=== PATIENT | male | born 1955 | race Hispanic/Latino ===

== ENCOUNTER → 2019-12-27 | Day surgery (SDC) | payer OTHER ==
[~2019-12-27] MED LIST: EPINEPHRINE/PF 1 MG/ML AMP ONE; LIDOCAINE 1% MPF 5 ML VIAL ONE; Ringers Lactate 1,000 ML IV ONE; propofoL 200 MG/20 ML VIAL IV ONE
--- OUTSIDE RECORDS SUMMARY | 2019-12-27 07:34 | XMS REPORT | Continuity of Care Document ---
:1955 Author Organization [facility] t Address [address] [place] [address] Care Team Providers Name Role Phone Lab, Fam Pob I Attending Clinician Unavailable Problems This patient has no known problems. Allergies, Adverse Reactions, Alerts This patient has no known allergies or adverse reactions. Medications This patient has no known medications. Procedures This patient has no known procedures. Encounters Start End Encounter Admission Attending Care Care Encounter Source Date/Time Date/Time Type Type Clinicians Facility Department ID 2019-09-04 2019-09-04 Laboratory Lab, [facility] [id number] 12:48:31 13:35:34 Only Fam Pob I [facility] [id number] [place] [id number] Nik [phone] nal [address] One Results This patient has no known results.
[2019-12-27 10:07] VITALS: BP 131/73; TEMP 97.2; O2SAT 98
--- NOTE | 2019-12-27 12:02 | OP ---
Surgeon: Dalton Landaverde MD Procedure Performed: Esophagogastroduodenoscopy. Indication For Procedure: Screening for esophageal varices, chronic liver disease, plan for anesthes ia monitored anesthesia care. Complexity: Average. Technique: After obtaining informed consent from the patient explaining risks and complications whic h include, but are not limited to bleeding, infection, perforation, anesthesia complications, the pat ient was placed in the left lateral position and sedation was given. From then on, the scope was adv anced to the mouth and carefully guided up to the second portion of the duodenum. After the completi on of procedure, scope and equipment were withdrawn and procedure terminated in a safe manner. Findings: Esophagus: No gross lesion seen in the entire esophagus, except for an irregular Z-line. Biopsies taken. No varices seen. Stomach: Mild patchy erythema seen in the body and antrum. Biopsies taken. There was a large solid food, retained food bezoar in the upper body that limited visualization. Duodenum: The bulb and second portion appeared normal. Complications: None. Tolerance To Anesthesia: Excellent. Postoperative Diagnosis: Gastric retention gastritis. Plan: 1.Await pathology results. 2.Follow up in the GI clinic in 2 weeks. 3.He may benefit from repeat EGD. 4.May start PPI based on biopsies. US/MODL Voice ID: [id number] Report ID: [id number]
== END ==
LOC: OR 07:26
PROVIDERS: ATTEND Internal Medicine Gastroenterology
PROC: 0DB78ZX Excision of Stomach, Pylorus, Via Natural or Artificial Opening Endoscopic, Diagnostic (ICD-10-PCS; 2019-12-27)
PROC: 0DB38ZX Excision of Lower Esophagus, Via Natural or Artificial Opening Endoscopic, Diagnostic (ICD-10-PCS; principal; 2019-12-27 08:30)
DX: K29.50 Unspecified chronic gastritis without bleeding (principal); K21.00 Gastro-esophageal reflux disease with esophagitis, without bleeding; K76.0 Fatty (change of) liver, not elsewhere classified; I10 Essential (primary) hypertension; E66.01 Morbid (severe) obesity due to excess calories; R93.3 Abnormal findings on diagnostic imaging of other parts of digestive tract; Z20.828 Contact with and (suspected) exposure to other viral communicable diseases
CPT/HCPCS: 88312; 88305; 43239; U0002; J2704; J7120; J0171

== ENCOUNTER 2019-12-31 06:32 | Day surgery (SDC) | payer OTHER ==
--- OUTSIDE RECORDS SUMMARY | 2019-12-31 06:34 | XMS REPORT | Continuity of Care Document ---
:1955 Author Organization [facility] t Address [address] [place] [address] Care Team Providers Name Role Phone Lab, [...] Facility Department ID 2019-09-04 2019-09-04 Laboratory Lab, [facility] [id number] 12:48:31 13:35:34 Only Fam Pob I [facility] [id number] [place] [id number] Nik [phone] nal [address] One Results This patient has no known results.
[2019-12-31] MEDS ORDERED: Ringers Lactate 1,000 ML IV ONE (06:48)
[2019-12-31] MEDS ORDERED: LIDOCAINE 1% MPF 5 ML VIAL ONE (07:33)
[2019-12-31] MEDS ORDERED: propofoL 200 MG/20 ML VIAL IV ONE ×2 (07:33)
--- NOTE | 2019-12-31 10:38 | OP ---
Surgeon: Dalton Landaverde MD Procedure To Be Performed: Colonoscopy. Indication For Procedure: Screening. Plan For Anesthesia: Monitored anesthesia care. Complexity: Average. Technique: After obtaining informed consent from the patient and explaining risks and complications which include, but are not limited to bleeding, infection, perforation, anesthesia complications, the patient was placed in a left lateral position and sedation was given. A digital rectal exam was per formed and scope advanced into the rectum and carefully guided up till the cecum. The cecum was iden tified by the ileocecal valve and appendiceal orifice. Subsequently, the scope gradually withdrawn w hile carefully examining the mucosa. Quality of prep was segmental poor, especially on the right edmar e. Scope withdrawal time was 11 minutes. Findings: Digital rectal exam was normal. Grade 1 internal hemorrhoids were seen on retroflexion in the rectum, rare diverticula seen in the sigmoid. In the transverse colon, a sessile 4 mm polyp see n. This was removed with hot biopsy polypectomy. In the ascending colon, 2 polyps ranging in size f rom 3 to 6 mm were seen. These were removed with hot biopsy polypectomy. Complications: None. Tolerance To Anesthesia: Excellent. Postop Diagnosis: Limited prep, polyps, rare diverticulosis. Plan: 1.Await pathology results. 2.Due to prep and current findings, would recommend repeating colonoscopy in 2 years. US/MODL Voice ID: [id number] Report ID: [id number]
[2019-12-31 11:47] VITALS: BP 124/76; TEMP 97.1; O2SAT 96
== END 2019-12-31 08:55 | disposition home or self-care (01) ==
LOC: OR 06:32
PROVIDERS: ATTEND Internal Medicine Gastroenterology
PROC: 0DBK8ZX Excision of Ascending Colon, Via Natural or Artificial Opening Endoscopic, Diagnostic (ICD-10-PCS; 2019-12-31)
PROC: 0DBL8ZX Excision of Transverse Colon, Via Natural or Artificial Opening Endoscopic, Diagnostic (ICD-10-PCS; principal; 2019-12-31 07:30)
DX: Z12.11 Encounter for screening for malignant neoplasm of colon (principal); D12.3 Benign neoplasm of transverse colon; D12.2 Benign neoplasm of ascending colon; K64.8 Other hemorrhoids; Z20.828 Contact with and (suspected) exposure to other viral communicable diseases; K76.0 Fatty (change of) liver, not elsewhere classified; R10.9 Unspecified abdominal pain; I10 Essential (primary) hypertension; E66.01 Morbid (severe) obesity due to excess calories; R93.3 Abnormal findings on diagnostic imaging of other parts of digestive tract; R93.2 Abnormal findings on diagnostic imaging of liver and biliary tract
CPT/HCPCS: 88305; 45384; J2704; J7120

== ENCOUNTER 2020-02-04 06:52 | Day surgery (SDC) | payer OTHER ==
--- OUTSIDE RECORDS SUMMARY | 2020-02-04 06:54 | XMS REPORT | Continuity of Care Document ---
:[address] [facility] t Address [address] [place] [address] Care Team Providers Name Role Phone Cyril ELIAS Primary Care Physician Cyril ELIAS Attending Clinician Lab, Fam Pob I Attending Clinician Unavailable Problems This patient has no known problems. Allergies, Adverse Reactions, Alerts This patient has no known allergies or adverse reactions. Social History Social Habit Start Date Stop Date Quantity Comments Source Sex Assigned At Karen Mendosa Exposure to SARS-CoV-2 Not sure Zac Mendosa (event) Medications This patient has no known medications. Procedures Procedure Date / Time Performed Performing Clinician [facility] e US VASCULAR SCREENING 2020-01-07 09:50:00 Leo Nam HEART SCAN PLUS CT HEART SCAN PLUS W 2020-01-07 08:35:00 Leo Nam PHYSICIAN ORDER Plan of Care Planned Activity Planned Date Details Comments Source Future Scheduled 2019-10-02 INFLUENZA VACCINE Liu Mendosa Test 00:00:00 [code = INFLUENZA VACCINE] Future Scheduled 2018 65+ PNEUMOCOCCAL Montez Mendosa Test 00:00:00 VACCINE (1 of 1 - PPSV23) [code = 65+ PNEUMOCOCCAL VACCINE (1 of 1 - PPSV23)] Future Scheduled 2003-06-07 COLONOSCOPY SCREENING Zac Mendosa Test 00:00:00 [code = COLONOSCOPY SCREENING] Future Scheduled 2003-06-07 SHINGLES VACCINES (#1) Justice Mendosa Test 00:00:00 [code = SHINGLES VACCINES (#1)] Encounters Start End Encounter Admission Attending Care Care Encounter Source Date/Time Date/Time Type Type Clinicians Facility Department ID 2020-01-07 2020-01-07 Outpatient [facility] [id number] [address] 00:00:00 00:00:00 LEO [address] 2020-01-07 2020-01-07 Outpatient [facility] [id number] [address] 00:00:00 00:00:00 LEO [address] 2019-09-04 2019-09-04 Laboratory Lab, [facility] [id number] 12:48:31 13:35:34 Only Fam Pob I Health [id number] [place] [id number] Professio [phone] nal [address] One Results Test Description Test Time Test Results Result Source Comments Comments Pv vascular Interface, Radiology Karen [facility] [place] screening heart 6 Results In - 01/07/2020 Judaism scan plus (self 10:36:00 10:41 AM DECALER pay) Vascular Diagnostic Laboratory Screening Report [address] [place] [address] Pat.Name: MARSHALL REYES Pat.ID: [id number] .Date: 01/07/2020 Refer.MD: LEO NAM MD Exam Time: 8:56:00 AM Study Type:Screening Age: 4 1955,64Y Sex: MALE Sonogrphr: Sara Arce RVT Pat. Stat.:Outpatient Tape Vol: LN, Echo Event ID:[id number] Order ID: [id number] Reason for Study:Vascular screening. History of hypertensionProcedures: Ankle/brachial pressures, Colorflow, Digit pressures,Grayscale/2D, PPG waveform tracing, Pulsed wave Doppler, Segmentalpressures----- --------SUMMARY:------- ------Vascular Screening ResultsScreening results are brief snapshots designed to detect functionalabnormal findings of carotid artery disease, abdominal aorticaneurysms (AAA), and peripheral arterial disease (PAD). Please Note: Screening results do not replace a complete vascularexamination.Car otid ArteryRight Internal Carotid Artery (X) Normal: No evidence of carotid artery disease Left Internal Carotid Artery (X) Normal: No evidence of carotid artery diseaseAbdominal Aorta(X) Normal: No evidence of aneurysmal dilatation (less than 3cm).Proximal aorta is not visualized.Ankle/Brachi al Index(X) Normal: No evidence of peripheral arterial disease (PAD).RecommendationsYo ur results are NORMAL, please continue with your primarypreventative measures. We encourage you to share these results withyour primary care physician. If you do not have a physician you can call our [facility] to schedule an appointment at [phone]. ---FINDINGS: --Signed 01/07/2020 10:36 Kevon Hall MD, RPVI
--- OUTSIDE RECORDS SUMMARY | 2020-02-04 06:54 | XMS REPORT | Clinical Summary ---
:1955 Author Organization [facility] Address [address] [place] [address] Care Team Providers Name Role Phone Devante Nam MD Primary Care Provider Allergies Not on File Medications Not on file Active Problems Not on file Encounters Date Type Specialty Care Team Description 01/07/2020 Hospital Encounter Procedural Devante Nam, Hyperli pidemia, Cardiology unspecified 01/07/2020 Travel 12/15/2019 Travel 12/02/2019 Transcribe Orders Access Devante Nam, Hyperlip idemia, MD unspecified (Pr imary Dx) after 02/03/2019 Social History Tobacco Use Types Packs/Day Years Used Date Never Assessed Sex Assigned at Date Recorded Not on file COVID-19 Exposure Response Date Recorded In the last month, have you been in contact with No / Unsure 01/07/2020 8:05 AM CYBER LEGAL ADVISOR someone who was confirmed or suspected to have Coronavirus / COVID-19? Last Filed Vital Signs Not on file Plan of Treatment Health Maintenance Due Date Last Done Comments COLONOSCOPY SCREENING 06/07/2003 SHINGLES VACCINES (#1) 06/07/2003 65+ PNEUMOCOCCAL VACCINE (1 of 1 - PPSV23) 2018 INFLUENZA VACCINE 10/02/2019 Procedures Procedure Name Priority Date/Time Associated Diagnosis Comme nts US VASCULAR Routine 01/07/2020 9:50 AM Hyperlipidemia, Resul ts for this SCREENING HEART CYBER LEGAL ADVISOR unspecified procedure ar e in SCAN PLUS the results section. CT HEART SCAN PLUS Routine 01/07/2020 8:35 AM Hyperlipidemia, Results for this W PHYSICIAN ORDER CYBER LEGAL ADVISOR unspecified procedure are in the results section. after 02/03/2019 Results Pv vascular screening heart scan plus (self pay) (01/07/2020 9:50 AM CYBER LEGAL ADVISOR) Specimen Narrative Performed At [facility] Vascular D iagnostic Laboratory Screening Report [id number] [facility], [place] [address], [place] [address] Pat.Name: MARSHALL NUÑEZ Pat.ID: [id number] .Date: 01/07/2020 Refer.MD: DEVANTE NAM MD Exam Time: 8:56:00 AM Study Type:S creening Age: 2 1955,64Y Sex: MALE Sonogrphr: Sara Arce RVT Pat. Stat.:Outpa tient Tape Vol: LN, Echo Michelle nt ID:[id number] Order ID: [id number] Reason for Study:Vascular screening. His tory of hypertension Procedures: Ankle/brachial pressures, Co lorflow, Digit pressures, Grayscale/2D, PPG waveform tracing, Puls ed wave Doppler, Segmental pressures SUMMARY: Vascular Screening Results Screening results are brief snapshots de signed to detect functional abnormal findings of carotid artery dise ase, abdominal aortic aneurysms (AAA), and peripheral arterial disease (PAD). Please Note: Screening results do not re place a complete vascular examination. Carotid Artery Right Internal Carotid Artery (X) Normal: No evidence of carotid art nelly disease Left Internal Carotid Artery (X) Normal: No evidence of carotid art nelly disease Abdominal Aorta (X) Normal: No evidence of aneurysmal dilatation (less than 3cm). Proximal aorta is not visualized. Ankle/Brachial Index (X) Normal: No evidence of peripheral arterial disease (PAD). Recommendations Your results are NORMAL, please continue with your primary preventative measures. We encourage yo u to share these results with your primary care physician. If you do not have a physician you can c all our [facility] to schedule an appointme nt at [phone]. FINDINGS: Signed 01/07/2020 10:36 AM Elvis Hall MD, RPVI Procedure Note Interface, Radiology Results In - 2019 10:41 AM CYBER LEGAL ADVISOR Vascular Diagnostic Laboratory Screening Rep ort [address] [facility], [place] [address] Pat.Name: MARSHALL NUÑEZI D: [id number] .Date: 01/07/2020 Refer .MD: DEVANTE NAM MD Exam Time: 8:56:00 AM Study Type:Screening Age: 4 1955,64Y Sex: MALE Sonogrphr: Sara Arce RVT Pat. Stat.:Outpatient Tape Vol: LN, Echo Event ID:[id number] Order ID: [id number] Reason for Study:Vascular screening. His tory of hypertension Procedures: Ankle/brachial pressures, Co lorflow, Digit pressures, Grayscale/2D, PPG waveform tracing, Puls ed wave Doppler, Segmental pressures SUMMARY: Vascular Screening Results Screening results are brief snapshots de signed to detect functional abnormal findings of carotid artery dise ase, abdominal aortic aneurysms (AAA), and peripheral arterial disease (PAD). Please Note: Screening results do not re place a complete vascular examination. Carotid Artery Right Internal Carotid Artery (X) Normal: No evidence of carotid davis ry disease Left Internal Carotid Artery (X) Normal: No evidence of carotid davis ry disease Abdominal Aorta (X) Normal: No evidence of aneurysmal d ilatation (less than 3cm). Proximal aorta is not visualized. Ankle/Brachial Index (X) Normal: No evidence of peripheral a rterial disease (PAD). Recommendations Your results are NORMAL, please continue with your primary preventative measures. We encourage you to share these results with your primary care physician. If you do not have a physician you can c all our [facility] to schedule an appointme nt at [phone]. FINDINGS: Signed 01/07/2020 10:36 AM Elvis Hall MD, RPVI Performing Organization Address City/State/ZIP Code Phon e Number [facility] [address] [place] [address] Ct heart scan plus w physician order (self pay) (01/07/2020 8:35 AM CYBER LEGAL ADVISOR) Specimen Narrative Performed At [facility] Cardi ology and Cardiac CT [address] [place] [address] Department Number: [phone] CT Calc ium Scoring Report Pat.Name: MARSHALL NUÑEZ Pat.ID: [id number] .Date: 01/07/2020 Refer.MD: DEVANTE NAM MD Exam Time: 8:25:00 AM Study Type:C T Calcium Scoring Height: 70in Weight: 265lb BSA: 2.35 m2 Ag e: 1955,64Y Sex: MALE HR: 50 bpm Nuclear Tech:Didi KeysRT(R)(CT) ,BS,MS Pat. Stat.:Outpatient CPT - 4: CT Calcium Score - Regulo Rosenthal [facility] Nuclear Event ID:[id number] Order ID: [id number] Reason for Study:Screening Procedures: CT Flash Mode (Diastolic Pha se) Race: SUMMARY: Technique: Sequential 3mm CT cuts were obtained thr ough the chest using the Siemens Somatom Force CT scanner with EC G gating. Interactive image viewing and volumetric display and mayte sis were also performed. The CAC score was quantified using the Agats ton scoring method. Non-contrast Cardiac CT results are as f ollows: The total Coronary Artery Calcium Score (CACS) is 920 . Calcium is distributed in the coronary arteries as follows: Left main: 0 . Left Anterior Descendin g (LAD): 580 . Left Circumflex (LCx): 40 . Right Coronary Artery (RCA ): 300 . The non-contrast CT shows a normal cardi ac size, no pericardial abnormalities, a normal aortic root of 3.7cm, a normal thoracic ascending aorta of 3.8cm, and a normal d escending thoracic aorta of 3.0cm. The left main and right coronary arteries appear to originate normally from the left and right sinus o f Valsalva. The right coronary artery is dominant. Non-Cardiac Findings: None. Conclusion: Abnormal non-contrast cardiac CT. The co ronary artery calcium score indicates a severe extent of coronary at herosclerosis with a >2% / year risk of a major cardiac event. Th e CACS is at the 90 th percentile based on age and gender. Recommendation: (1) Intensive risk factor modification i s indicated to prevent further progression of coronary atherosclerosis. Unless contraindicated, low dose aspirin (81mg) is recommended in ad dition to treatment of hyperlipidemia with target LDL levels <7 0mg/dl. (2) Stress myocardial perfusion imaging should be performed to exclude underlying myocardial ischemia. Approxim ately 30% of patients with severe coronary artery calcium score terese l have ischemia and flow limiting coronary artery disease. FINDINGS: Signed 01/08/2020 07:49 PM Hector Valencia MD Procedure Note Interface, Radiology Results In - 2019 7:50 PM [facility] Nuclear Cardiology and Cardiac CT [address] [place] [address] Department Number: CT Calcium Scoring Report Pat.Name: MARSHALL NUÑEZ Pat.I D: [id number] St.Date: 01/07/2020 Refer .MD: DEVANTE NAM MD Exam Time: 8:25:00 AM Study Type:CT Calcium Scoring Height: 70in Weigh t: 265lb BSA: 2.35 m2 Age: 4 1955,64Y Sex: MALE HR: 50 bpm Nuclear Tech:Didi KeysRT(R)(CT) ,BS,MS Pat. Stat.:Outpatient CPT - 4: CT Calcium Score - Regulo ramos Nuclear Event ID:[id number] Order ID: [id number] Reason for Study:Screening Procedures: CT Flash Mode (Diastolic Pha se) Race: SUMMARY: Technique: Sequential 3mm CT cuts were obtained thr ough the chest using the Siemens Somatom Force CT scanner with EC G gating. Interactive image viewing and volumetric display and mayte sis were also performed. The CAC score was quantified using the Agats ton scoring method. Non-contrast Cardiac CT results are as f ollows: The total Coronary Artery Calcium Score (CACS) is 920 . Calcium is distributed in the coronary arteries as follows: Left main: 0 . Left Anterior Descending (LAD): 580 . Left Circumflex (LCx): 40 . Right Coronary Artery (RCA) : 300 . The non-contrast CT shows a normal cardi ac size, no pericardial abnormalities, a normal aortic root of 3.7cm, a normal thoracic ascending aorta of 3.8cm, and a normal d escending thoracic aorta of 3.0cm. The left main and right coronary arteries appear to originate normally from the left and right sinus o f Valsalva. The right coronary artery is dominant. Non-Cardiac Findings: None. Conclusion: Abnormal non-contrast cardiac CT. The co ronary artery calcium score indicates a severe extent of coronary at herosclerosis with a >2% / year risk of a major cardiac event. The CACS is at the 90 th percentile based on age and gender. Recommendation: (1) Intensive risk factor modification i s indicated to prevent further progression of coronary atherosclerosis. Unless contraindicated, low dose aspirin (81mg) is recommended in ad dition to treatment of hyperlipidemia with target LDL levels <7 0mg/dl. (2) Stress myocardial perfusion imaging should be performed to exclude underlying myocardial ischemia. Approxim ately 30% of patients with severe coronary artery calcium score terese l have ischemia and flow limiting coronary artery disease. FINDINGS: Signed 01/08/2020 07:49 PM Hector Valencia MD Performing Organization Address City/State/ZIP Code Phon e Number [facility] [address] [place] [address] after 02/03/2019 Advance Directives For more information, please contact: [phone] Type Date Recorded Patient Application Development Liaison Explanati on Advance Directives, Living Will and Medical Power of Banquet Houseperson
[2020-02-04] MEDS ORDERED: Ringers Lactate 1,000 ML IV ONE (07:23)
[2020-02-04] MEDS ORDERED: propofoL 200 MG/20 ML VIAL IV ONE (07:54)
[2020-02-04] MEDS ORDERED: LIDOCAINE 1% MPF 5 ML VIAL ONE (07:54)
[2020-02-04] MEDS ORDERED: EPINEPHRINE/PF 1 MG/ML AMP ONE (08:01)
[2020-02-04 08:35] VITALS: TEMP 97
[2020-02-04 08:42] VITALS: O2SAT 95
--- NOTE | 2020-02-04 09:26 | OP ---
Surgeon: Dalton Landaverde MD Procedure Performed: Esophagogastroduodenoscopy. Indication For Procedure: Fatty liver disease, evaluation for varices, also gastric retention on the last endoscopy precluding visualization. Plan For Anesthesia: Monitored anesthesia care. Complexity: Average. Technique: After obtaining informed consent from the patient and explaining risks and complications which include, but are not limited to bleeding, infection, perforation, and anesthesia complication, the patient was placed in the left lateral position and sedation was given. From then on, the scope was advanced into the mouth and carefully guided up till the second portion of the duodenum. After t he completion of examination, scope and equipment were withdrawn and procedure terminated in a safe m raymundo. Findings: Esophagus: No gross lesion seen in the entire esophagus. The Z-line was irregular, biops ies taken. Stomach: Mild patchy erythema seen in the body and antrum, biopsies taken. Duodenum: The bulb and second portion appeared normal. Complications: None. Tolerance To Anesthesia: Excellent. Postoperative Diagnosis: Irregular Z-line, mild gastritis. Plan: 1.Await pathology results. 2.Continue PPI. 3.Follow up in the clinic in 2 weeks. US/MODL Voice ID: [id number] Report ID: [id number]
[2020-02-04 09:27] VITALS: BP 126/78
== END 2020-02-04 09:00 | disposition home health service (06) ==
LOC: OR 06:52
PROVIDERS: ATTEND Internal Medicine Gastroenterology
PROC: 0DB68ZX Excision of Stomach, Via Natural or Artificial Opening Endoscopic, Diagnostic (ICD-10-PCS; 2020-02-04)
PROC: 0DB58ZX Excision of Esophagus, Via Natural or Artificial Opening Endoscopic, Diagnostic (ICD-10-PCS; principal; 2020-02-04 08:00)
DX: K29.60 Other gastritis without bleeding (principal); Z20.828 Contact with and (suspected) exposure to other viral communicable diseases; I10 Essential (primary) hypertension; E66.01 Morbid (severe) obesity due to excess calories; K22.70 Barrett's esophagus without dysplasia; K76.0 Fatty (change of) liver, not elsewhere classified
CPT/HCPCS: 88312; 88305; 43239; U0002; J2704; J7120; J0171

== ENCOUNTER 2020-05-08 02:32 | Observation (INO) | payer OTHER ==
--- OUTSIDE RECORDS SUMMARY | 2020-05-08 02:36 | XMS REPORT | Continuity of Care Document ---
:1955 Author Organization [facility] t Address [address] [place] [address] Care Team Providers Name Role Phone Lab, Fam Pob I Attending Clinician Unavailable Doctor Unassigned, Name Attending Clinician Unavailable Provider, Urgent Care Attending Clinician Unavailable MAGALI Attending Clinician Unavailable Problems This patient has no known problems. Allergies, Adverse Reactions, Alerts This patient has no known allergies or adverse reactions. Medications This patient has no known medications. Procedures This patient has no known procedures. Encounters Start End Encounter Admission Attending Care Care Encounter Source Date/Time Date/Time Type Type Clinicians Facility Department ID 2020-03-15 2020-03-15 Laboratory Lab, [facility] [id number] 09:54:02 10:14:02 Only Fam Pob I Health [id number] [place] [id number] Professio [phone] nal [address] 2020-03-15 2020-03-15 Letter Doctor OSIRIS [id number] 00:00:00 00:00:00 (Out) Unassigned, TIANNA [id number] [place] [facility] [phone] [id number] 2020-02-10 2020-02-10 Letter Provider, [facility] [id number] 00:00:00 00:00:00 (Out) Ang Urgent Health [id number] Care [place] [id number] Professio [phone] nal [address] 2020-02-09 2020-02-09 Laboratory Lab, [facility] [id number] 08:01:02 08:21:02 Only Fam Pob I Health [id number] [place] [id number] Professio [phone] nal [address] 2020-01-07 2020-01-07 Outpatient [facility] [id number] [address] [place] [address] 00:00:00 00:00:00 DEVANTE [address] 2020-01-07 2020-01-07 Outpatient [facility] [id number] [address] [place] [address] 00:00:00 00:00:00 DEVANTE [address] 2019-09-04 2019-09-04 Laboratory Lab, [facility] [id number] 12:48:31 13:35:34 Only Fam Pob I Health [id number] [place] [id number] Professio [phone] nal [facility] [address] One Results This patient has no known results.
[2020-05-08 02:59] LABS: Protime INR 1.06
[2020-05-08 03:01] LABS: Absolute Lymphocytes (CBC) 2.2 K/uL (0.7-4.9); Basophils % 0.5 % (0-1.3); Hematocrit 42.7 % (39.6-49.0); Lymphocytes % 26.8 % (15.3-44.8); MPV 9.3 fL (7.6-11.3); RBC Red Blood Cell Count 4.97 M/uL (4.33-5.43)
[2020-05-08] MEDS ORDERED: MORPHINE 4 MG/ML SYR ONE (03:08)
[2020-05-08] MEDS ORDERED: ONDANSETRON 4 MG/2 ML VIAL ONE (03:08)
[2020-05-08 03:45] LABS: Albumin 3.6 g/dL (3.4-5.0); Bilirubin Direct 0.1 mg/dL (0-0.2); Bilirubin Total 0.7 mg/dL (0.2-1.0); Magnesium 2.2 mg/dL (1.8-2.4); Potassium 3.9 mmol/L (3.5-5.1); Protein, Total 7.6 g/dL (6.4-8.2); Troponin (Emerg Dept Use Only) 0.04 ng/mL (0.0-0.045)
[2020-05-08] MEDS ORDERED: ASPIRIN 81 MG CHEWABLE TABLET ONE (03:49)
--- NOTE | 2020-05-08 04:37 | EDPHYS ---
Physician Documentation [facility] Name: Simon Wright Age: 64 yrs Sex: Male : 1955 Arrival Date: 05/08/2020 Time: 02:34 Bed 6 Private MD: ED Physician Roldan Lundberg HPI: 05/08 03:28 This 64 yrs old Male presents to ER via EMS with complaints of Chest Pain. mh7 03:28 The patient or guardian reports chest pain that is located primarily in the substernal mh7 area. Onset: just prior to arrival, this morning. The pain radiates to the right arm. 03:28 Associated signs and symptoms: Pertinent negatives: abdominal pain, cough, diaphoresis, mh7 dizziness, headache, lower extremity pain, lower extremity swelling, lightheadedness, nausea, near syncope, palpitations, recent travel, shortness of breath, syncope, vomiting. The chest pain is described as a pressure. Duration: The patient or guardian reports multiple episodes, that are intermittent, that wax and wane. Modifying factors: The symptoms are alleviated by nothing. the symptoms are aggravated by nothing. Severity of pain: At its worst the pain was moderate today, in the emergency department the pain is unchanged. Historical: - Allergies: 02:41 No Known Allergies; ea - Home Meds: 02:41 carvedilol 6.25 mg oral tab 1 tab 2 times per day [Active]; ea losartan-hydrochlorothiazide oral oral [Active]; amlodipine 5 mg tab 1 tab once daily [Active]; - PMHx: 02:41 Hypertension; ea - Immunization history:: Adult Immunizations up to date. - Social history:: Smoking status: unknown. ROS: 03:28 Constitutional: Negative for fever, chills, and weight loss, Eyes: Negative for injury, mh7 pain, redness, and discharge, ENT: Negative for injury, pain, and discharge, Neck: Negative for injury, pain, and swelling, Respiratory: Negative for shortness of breath, cough, wheezing, and pleuritic chest pain, Abdomen/GI: Negative for abdominal pain, nausea, vomiting, diarrhea, and constipation, Back: Negative for injury and pain, : Negative for injury, bleeding, discharge, and swelling, MS/Extremity: Negative for injury and deformity, Skin: Negative for injury, rash, and discoloration, Neuro: Negative for headache, weakness, numbness, tingling, and seizure, Psych: Negative for depression, anxiety, suicide ideation, homicidal ideation, and hallucinations, Allergy/Immunology: Negative for hives, rash, and allergies, Endocrine: Negative for neck swelling, polydipsia, polyuria, polyphagia, and marked weight changes, Hematologic/Lymphatic: Negative for swollen nodes, abnormal bleeding, and unusual bruising. Exam: 03:28 Constitutional: This is a well developed, well nourished patient who is awake, alert, mh7 and in no acute distress. Head/Face: Normocephalic, atraumatic. Eyes: Pupils equal round and reactive to light, extra-ocular motions intact. Lids and lashes normal. Conjunctiva and sclera are non-icteric and not injected. Cornea within normal limits. Periorbital areas with no swelling, redness, or edema. Neck: Trachea midline, no thyromegaly or masses palpated, and no cervical lymphadenopathy. Supple, full range of motion without nuchal rigidity, or vertebral point tenderness. No Meningismus. Chest/axilla: Normal chest wall appearance and motion. Nontender with no deformity. No lesions are appreciated. Cardiovascular: Regular rate and rhythm with a normal S1 and S2. No gallops, murmurs, or rubs. Normal PMI, no JVD. No pulse deficits. Respiratory: Lungs have equal breath sounds bilaterally, clear to auscultation and percussion. No rales, rhonchi or wheezes noted. No increased work of breathing, no retractions or nasal flaring. Abdomen/GI: Soft, non-tender, with normal bowel sounds. No distension or tympany. No guarding or rebound. No evidence of tenderness throughout. Back: No spinal tenderness. No costovertebral tenderness. Full range of motion. Skin: Warm, dry with normal turgor. Normal color with no rashes, no lesions, and no evidence of cellulitis. MS/ Extremity: Pulses equal, no cyanosis. Neurovascular intact. Full, normal range of motion. Neuro: Awake and alert, GCS 15, oriented to person, place, time, and situation. Cranial nerves II-XII grossly intact. Motor strength 5/5 in all extremities. Sensory grossly intact. Cerebellar exam normal. Normal gait. Psych: Awake, alert, with orientation to person, place and time. Behavior, mood, and affect are within normal limits. Vital Signs: 02:35 BP 155 / 91; Pulse 63; Resp 18; Temp 97; Pulse Ox 96% on R/A; Weight 119.75 kg; Height ea 5 ft. 9 in. (175.26 cm); Pain 2/10; 03:00 BP 123 / 82; Pulse 63; Resp 18; Pulse Ox 95% ; rr5 04:00 BP 91 / 54; Pulse 58; Resp 16; Pulse Ox 99% ; rr5 02:35 Body Mass Index 38.99 (119.75 kg, 175.26 cm) ea MDM: 04:34 Differential diagnosis: abnormal EKG, acute myocardial infarction, acute pericarditis, mh7 anxiety, coronary artery disease chest wall pain, congestive heart failure costochondritis, myocarditis, pericarditis, pneumonia. HEART Score: History: Moderately Suspicious (1), ECG: Non specific repolarization disturbance / LBTB / PM (1), Age: > or = 65 years (2), Risk Factors: 1 or 2 risk factors (1), [Hypertension] Troponin: < or = 1 x Normal Limit (0), Total Score = 5. The patient was given aspirin in the Emergency Department. Data reviewed: vital signs, nurses notes, EMS record, lab test result(s), cardiac enzymes, CBC, electrolytes, urinalysis, EKG, radiologic studies, plain films. Data interpreted: Pulse oximetry: on room air is 96 %. Interpretation: normal. Counseling: I had a detailed discussion with the patient and/or guardian regarding: the historical points, exam findings, and any diagnostic results supporting the discharge/admit diagnosis, the presence of at least one elevated blood pressure reading (>120/80) during this emergency department visit, lab results, radiology results, the need for further work-up and treatment in the hospital. Response to treatment: the patient's symptoms have markedly improved after treatment. 04:36 Patient medically screened. 7 05/08 02:34 Order name: Basic Metabolic Panel ea 05/08 02:34 Order name: CBC with Diff ea 05/08 02:34 Order name: LFT's ea 05/08 02:34 Order name: Magnesium; Complete Time: 04:04 ea 05/08 02:34 Order name: NT PRO-BNP; Complete Time: 04:04 ea 05/08 02:34 Order name: PT-INR; Complete Time: 03:28 ea 05/08 02:34 Order name: Troponin (emerg Dept Use Only); Complete Time: 04:04 ea 05/08 02:34 Order name: XRAY Chest (1 view) ea 05/08 02:35 Order name: Basic Metabolic Panel; Complete Time: 04:04 EDTN 05/08 02:35 Order name: CBC with Automated Diff; Complete Time: 03:28 EDMS 05/08 02:35 Order name: Liver (Hepatic) Function; Complete Time: 04:04 EDMS 05/08 02:43 Order name: COVID-19 : Document "Date of Symptom Onset" if Symptomatic. ea 05/08 08:30 Order name: Troponin I EDTN 05/08 02:34 Order name: EKG; Complete Time: 02:36 ea 05/08 02:34 Order name: Cardiac monitoring; Complete Time: 02:35 ea 05/08 02:34 Order name: EKG - Nurse/Tech; Complete Time: 02:35 ea 05/08 02:34 Order name: IV Saline Lock; Complete Time: 02:41 ea 05/08 02:34 Order name: Labs collected and sent; Complete Time: 02:41 ea 05/08 02:34 Order name: O2 Per Protocol; Complete Time: 02:41 ea 05/08 02:34 Order name: O2 Sat Monitoring; Complete Time: 02:41 ea Administered Medications: 02:59 Drug: morphine 2 mg Route: IVP; Site: right hand; ea 02:59 Drug: Zofran (Ondansetron) 4 mg Route: IVP; Site: right hand; ea 03:38 Drug: Aspirin Chewable Tablet 324 mg Route: PO; rv Disposition: 05/08/20 04:36 Hospitalization ordered by Leo Nam for Observation. Preliminary diagnosis is Chest pain, unspecified. - Bed requested for Telemetry/MedSurg (observation). - Status is Observation. bp - Condition is Stable. - Problem is new. - Symptoms have improved. Signatures: Dispatcher [employer] EDMS Tia Willard Cindy, RN RN cg Antunez, Elena, RN RN ea Peltier, Brian, RN RN bp Vicente, Ronaldo, RN RN rv Roldan Lundberg MD MD mh7 Corrections: (The following items were deleted from the chart) 05:01 04:36 Hospitalization Ordered by Leo Nam MD for Observation. Preliminary diagnosis cg is Chest pain, unspecified. Bed requested for Telemetry/MedSurg (observation). Status is Observation. Condition is Stable. Problem is new. Symptoms have improved. mh7 09:53 05:01 05/08/2020 04:36 Hospitalization Ordered by Leo Nam MD for Observation. bd Preliminary diagnosis is Chest pain, unspecified. Bed requested for [facility] ER HOLD. Status is Observation. Condition is Stable. Problem is new. Symptoms have improved. cg 11:55 09:53 05/08/2020 04:36 Hospitalization Ordered by Leo Nam MD for Observation. bp Preliminary diagnosis is Chest pain, unspecified. Bed requested for Telemetry/MedSurg (observation). Status is Observation. Condition is Stable. Problem is new. Symptoms have improved. bd
--- NOTE | 2020-05-08 04:37 | ER ---
Nurse's Notes [facility] [place], [place] Name: Simon Wright Age: 64 yrs Sex: Male : 1955 Arrival Date: 05/08/2020 Time: 02:34 Bed 6 Private MD: Diagnosis: Chest pain, unspecified Presentation: 05/08 02:35 Chief complaint: Patient states: Pt reports he woke up this AM with severe chest pain ea 9 that radiated to left arm. EMS reports pt is schedules for a cardiac cath procedure this AM. Coronavirus screen: At this time, the client does not indicate any symptoms associated with coronavirus-19. Ebola Screen: No symptoms or risks identified at this time. Initial Sepsis Screen: Does the patient meet any 2 criteria? No. Patient's initial sepsis screen is negative. Does the patient have a suspected source of infection? No. Patient's initial sepsis screen is negative. Risk Assessment: Do you want to hurt yourself or someone else? Patient reports no desire to harm self or others. Onset of symptoms was May 08, 2020. 02:35 Acuity: QUANG 3 ea 02:35 Method Of Arrival: EMS: [facility] ea Historical: - Allergies: 02:41 No Known Allergies; ea - Home Meds: 02:41 carvedilol 6.25 mg oral tab 1 tab 2 times per day [Active]; ea losartan-hydrochlorothiazide oral oral [Active]; amlodipine 5 mg tab 1 tab once daily [Active]; - PMHx: 02:41 Hypertension; ea - Immunization history:: Adult Immunizations up to date. - Social history:: Smoking status: unknown. Screenin:39 Abuse screen: Denies threats or abuse. Nutritional screening: No deficits noted. ea Tuberculosis screening: No symptoms or risk factors identified. Fall Risk IV access (20 points). Assessment: 02:41 General: Appears in no apparent distress. Behavior is calm, cooperative, appropriate ea for age. Pain: Complains of pain in chest Pain radiates to left arm. Neuro: Level of Consciousness is awake, alert, obeys commands, Oriented to person, place, time. Cardiovascular: Patient's skin is warm and dry. Respiratory: Airway is patent Respiratory effort is even, unlabored, Respiratory pattern is regular, symmetrical. Derm: Skin is pink, warm \T\ dry. 03:40 Reassessment: Patient and/or family updated on plan of care and expected duration. Pain rr5 level reassessed. Patient is alert, oriented x 3, equal unlabored respirations, skin warm/dry/pink. 04:30 Reassessment: Patient and/or family updated on plan of care and expected duration. Pain rr5 level reassessed. Patient is alert, oriented x 3, equal unlabored respirations, skin warm/dry/pink. 05:01 Reassessment: Patient and/or family updated on plan of care and expected duration. Pain rr5 level reassessed. Patient is alert, oriented x 3, equal unlabored respirations, skin warm/dry/pink. Vital Signs: 02:35 BP 155 / 91; Pulse 63; Resp 18; Temp 97; Pulse Ox 96% on R/A; Weight 119.75 kg; Height ea 5 ft. 9 in. (175.26 cm); Pain 2/10; 03:00 BP 123 / 82; Pulse 63; Resp 18; Pulse Ox 95% ; rr5 04:00 BP 91 / 54; Pulse 58; Resp 16; Pulse Ox 99% ; rr5 02:35 Body Mass Index 38.99 (119.75 kg, 175.26 cm) ea ED Course: 02:34 Patient arrived in ED. ea 02:38 Triage completed. ea 02:39 Maintain EMS IV. Dressing intact. Good blood return noted. Site clean \T\ dry. Gauge \T\ ea site: 18G. Patient maintains SpO2 saturation greater than 95% on room air. 02:39 Patient has correct armband on for positive identification. Placed in gown. Bed in low ea position. Call light in reach. Side rails up X2. potline monitor on. Pulse ox on. NIBP on. 02:39 Arm band placed on right wrist. Patient placed in an exam room, on a stretcher, on ea equipment monitor phototypesetting, on pulse oximetry. 02:41 Roldan Lundberg MD is Attending Physician. [facility] 02:42 Patricia Damico RN is Primary Nurse. 04:36 Leo Nam MD is Hospitalizing Provider. [facility] 05:01 No provider procedures requiring assistance completed. Patient admitted, IV remains in rr5 place. Administered Medications: 02:59 Drug: morphine 2 mg Route: IVP; Site: right hand; ea 02:59 Drug: Zofran (Ondansetron) 4 mg Route: IVP; Site: right hand; ea 03:38 Drug: Aspirin Chewable Tablet 324 mg Route: PO; rv Outcome: 04:36 Decision to Hospitalize by Provider. mh7 05:01 Instructed on the need for admit, Demonstrated understanding of instructions. rr5 11:55 Patient left the ED. bp Signatures: Patricia Damico RN RN ea Peltier, Brian, RN RN Caleb Huizar, RN CARLOS Rafiq Grande RN RN rr5 Roldan Lundberg MD MD [facility]
[2020-05-08] MEDS ORDERED: MORPHINE 4 MG/ML SYR IV PRN (04:40)
[2020-05-08] MEDS ORDERED: ONDANSETRON 4 MG/2 ML VIAL IV PRN (04:40)
[2020-05-08 06:36] VITALS: BMI 38.9
[2020-05-08] MEDS ORDERED: PNEUMOCOCCAL VACCINE 0.5 ML IMVAC ONE (09:00)
[2020-05-08] MEDS ORDERED: INFLUENZA VACCINE (for 3y+) 0.5 ML DOSE IMVAC ONE (09:00)
[2020-05-08] MEDS ORDERED: HEPA 1000U/500MLS 2,000 UNIT/1,000 ML BAG IV ONE (14:55)
[2020-05-08] MEDS ORDERED: NA CHLORIDE 0.9% 500 ML ONE (15:07)
[2020-05-08] MEDS ORDERED: HEPARIN 5000 UNIT/ML 1 ML VIAL ONE (15:12)
[2020-05-08] MEDS ORDERED: MIDAZOLAM HCL 2 MG/2 ML INJ ONE (15:12)
[2020-05-08] MEDS ORDERED: VERAPAMIL HCL 10 MG/4 ML VIAL IV ONE (15:13)
[2020-05-08] MEDS ORDERED: FENTANYL CITR 100 MCG/2 ML ONE (15:13)
[2020-05-08] MEDS ORDERED: ATROPINE SULF 1 MG/10 ML SYR IV ONE (15:13)
[2020-05-08] MEDS ORDERED: ASPIRIN 325 MG TAB ONE (15:58)
[2020-05-08] MEDS ORDERED: TICAGRELOR 90 MG TABLET PO ONE (15:58)
[2020-05-08] MEDS ORDERED: HEPA 1000U/500MLS 1,000 UNIT/500 ML BAG IV ONE (16:06)
[2020-05-08] MEDS ORDERED: ADENOSINE 6 MG/ 2ML VIAL IV ONE (16:08)
[2020-05-08] MEDS ORDERED: NICARDIPINE HCL 25 MG/10 ML IV ONE (16:17)
[2020-05-08] MEDS ORDERED: NA CHLORIDE 0.9% 50 ML ONE (16:18)
--- NOTE | 2020-05-08 17:52 | RAD REPORT ---
EXAM DESCRIPTION: RAD - Chest Single View - 05/08/2020 2:57 am CLINICAL HISTORY: 64 years, Male, CHEST PAIN COMPARISON: None. FINDINGS: Single view of the chest was obtained portable. No prior films are available for compariso n. The cardiomediastinal silhouette demonstrate to be unremarkable. The heart is not enlarged. The thoracic aorta is unremarkable. Costophrenic angles are sharp. No areas of consolidation or masses are seen. The rest of the soft tissue and bony structures demonstrate to be unremarkable. IMPRESSION: NO ACUTE CARDIOPULMONARY DISEASE SEEN. 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 The interpreting radiologist is fully responsible for the content of the report.
--- NOTE | 2020-05-08 18:31 | OP ---
Date of Procedure: 05/08/2020 Surgeon: CHRISTINA STRATTON Procedures Performed: 1.Selective coronary angiogram. 2.Percutaneous coronary intervention of severe mid LAD 99% stenosis with TAZ-2 flow. We used 2.75 x 32 mm Synergy drug-eluting stent with resultant TAZ-3 flow and 0% residual stenosis. Indications: Non-ST elevation myocardial infarction. Access: Right radial artery 6-Iranian closed with TR band. Complications: None. Bleeding: Less than 10 mL. Description Of Procedure: After risks, benefits, and alternatives were explained, the patient agreed to proceed and signed informed consent. Then, we brought the patient to the cardiac catheterization laboratory, prepped and draped in usual sterile fashion. Then, we accessed right radial artery usin g a pediatric micropuncture kit and placed a 6-Iranian slender sheath and then took a 5-Iranian [place] c atheter into the aortic root over a J-wire, engaged left main and right coronary artery and took luisana dard views. Intervention Details: We gave systemic heparin to assure ACT level above 250, loaded the patient wit h 180 mg of Brilinta and 325 mg of aspirin. Then, we took a 6-Iranian EBU 3.5 guide into the aortic r oot over a J-wire, engaged left main and then took a short Run-Through wire into the LAD across the s tenosis. Lesion was pre-dilated using a 2.5 x 20 mm compliant balloon to high pressure and then took a 2.75 x 32 mm Synergy drug-eluting stent, deployed over the areas of stenosis and had a slow flow. We used intracoronary nicardipine and adenosine as well as nitroglycerin. Then, we had a TAZ-3 ravi w within the procedure and 0% residual stenosis. Then, we took the guide and the wires, took final i njection with good results and then took the sheath out and placed TR band with good hemostasis. Findings: 1.Left main; very large and normal. 2.LAD; large in the proximal portion, in the mid portion moderate size with a long area of stenosis, 99% stenosis, which is a culprit for the [place], status post successful PCI using 2.75 x 32 mm Synergy d rug-eluting stent. Distal to the stent, there are 3 discrete areas of stenosis about 80% to 90%, the vessel becomes small in the distal. Diagonal branch 1 is very large. At the takeoff, there was a 3 0% stenosis and then diffuse 10% to 20% stenosis. 3.Left circumflex is large and normal and codominant circulation. 4.RCA is large and ectatic at some portions with 70% to 80% stenosis at the proximal and 80% stenosi s at the mid, and then diffuse 10% to 20% stenosis. Conclusions: 1.Severe mid LAD stenosis, which is a culprit for the [place], status post successful PCI as above and th en diffuse distal disease. 2.Severe RCA stenosis as above. Plan: 1.Continue Brilinta, aspirin, and statin. 2.Staged PCI of RCA, reevaluate the distal LAD for possible further PCI if needed, to be done within 1-2 weeks. The patient can be observed overnight. If hemodynamically stable, can be released tomor row on Brilinta, aspirin, and statin. SR/MODL Voice ID: [id number] Report ID: [id number]
--- NOTE | 2020-05-08 20:32 | P.SSS ---
Patient History Date of Service: 05/08/20 Reason for admission: CHEST PAIN History of Present Illness: MR. REYES HAS CHEST PAIN OFF AND ON AND HAD MORE INTENSE TODAY SO HE CAME TO ER. HE WAS SCHEDULED FOR CATH TODAY. I DON'T SEE ANY REPORT YET. I SAW HIM IN AM IN THE ER. Allergies No Known Allergies Allergy (Verified 01/10/20 13:09) Home medications list reviewed: Yes Home Medications: Aspirin 81 mg PO DAILY 12/24/19 Losartan/Hydrochlorothiazide [Losartan-Hctz 100-12.5 mg Tab] 1 tab PO DAILY 12/24/19 carvediloL [Carvedilol] 6.25 mg PO BID 12/24/19 Amlodipine Besylate 5 mg PO DAILY 05/08/20 - Past Medical/Surgical History Has patient received pneumonia vaccine in the past: Yes -: hypertension - Social History Smoking Status: Never smoker Place of Residence: Home Review of Systems 10-point ROS is otherwise unremarkable Physical Examination - Vital Signs Temperature: 97.3 F Blood Pressure: 127/64 Pulse: 65 Respirations: 14 Pulse Ox (%): 95 - Physical Exam General: Mild distress, Obese HEENT: Atraumatic, PERRLA, Mucous membr. moist/pink, EOMI, Sclerae nonicteric Neck: Supple, 2+ carotid pulse no bruit, No LAD, Without JVD or thyroid abnormality Respiratory: Clear to auscultation bilaterally, Normal air movement Cardiovascular: Regular rate/rhythm, Normal S1 S2 Gastrointestinal: Normal bowel sounds, No tenderness Musculoskeletal: No tenderness Integumentary: No rashes Neurological: Normal gait, Normal speech, Normal strength at 5/5 x4 extr, Normal tone, Normal affect Lymphatics: No axilla or inguinal lymphadenopathy - Studies Laboratory Data (last 24 hrs) 05/08/20 02:32: PT 12.2, INR 1.06 05/08/20 02:32: WBC 8.10 D, Hgb 14.4, Hct 42.7, Plt Count 232 05/08/20 02:32: Sodium 138, Potassium 3.9, BUN 20 H, Creatinine 0.99, Glucose 131 H, Magnesium 2.2, Total Bilirubin 0.7, AST 18, ALT 29, Alkaline Phosphatase 76 - Diagnosis (Problem(s)) (1) Chest pain Current Visit: Yes Status: Acute Plan: HE MAY HAVE CAD. CATH TODAY. I TEXTED DR. SELF TO GET REPORT. CONTINUE ASPIRIN. LOVENOX UNTIL DISCHARGE. - Disposition Disposition: ROUTINE DISCHARGE
[2020-05-08] MEDS: carvediloL 6.25 MG TAB PO SCH (21:58)
[2020-05-09 06:06] LABS: Absolute Lymphocytes (CBC) 1.1 K/uL (0.7-4.9); Basophils % 0.4 % (0-1.3); Lymphocytes % 16.6 % (15.3-44.8); MPV 9.3 fL (7.6-11.3); RBC Red Blood Cell Count 4.89 M/uL (4.33-5.43)
[2020-05-09 06:15] LABS: Potassium 3.9 mmol/L (3.5-5.1)
[2020-05-09 08:40] VITALS: BP 127/78; TEMP 97.1
[2020-05-09] MEDS ORDERED: ASPIRIN 81 MG CHEWABLE TABLET PO SCH (09:00)
[2020-05-09] MEDS ORDERED: hydroCHLOROthiazide 12.5 MG CAP PO SCH (09:00)
[2020-05-09] MEDS ORDERED: AMLODIPINE 5 MG TAB PO SCH (09:00)
[2020-05-09] MEDS ORDERED: HOME MED 1 EA UNK (Losartan/Hydrochlorothiazide [Losartan-Hctz 100-12.5 Mg Tab] 1 EACH Tab PO SCH (09:00)
[2020-05-09] MEDS ORDERED: LOSARTAN POTASSIUM 50 MG TABLET PO SCH (09:00)
[2020-05-09] MEDS: carvediloL 6.25 MG TAB PO SCH (09:14)
[2020-05-09 09:49] VITALS: O2SAT 95
[2020-05-09] MEDS ORDERED: ENOXAPARIN 40 MG/0.4 ML SQ SCH (17:00)
--- NOTE | 2020-05-13 11:10 | CON ---
Date of Consultation: 05/08/2020 History Of Present Illness: Mr. Joaquin Wright is a 64-year-old male, who was actually scheduled to [facility] heart catheterization as an outpatient initially on 05/08/2020, but he came into the hospital wi th chest pain and was admitted. He describes his chest pain as substernal, radiating to the right ar m without any nausea, vomiting, diaphoresis, PND, orthopnea, pedal edema, palpitations, or syncope. He denied any fever or chills. Allergies: NONE. Review of Systems: Negative. Social History: Negative. Family History: Negative. Past Medical History: Include hypertension. Medications: At home include carvedilol, amlodipine, losartan with hydrochlorothiazide. Physical Examination: Vital Signs: Stable. Afebrile. HEENT: Negative. Neck: Supple with no bruit. Chest: Clear to auscultation and percussion. Cardiac: Revealed a regular rhythm and rate. No murmurs, gallops, or rubs. Abdomen: Benign. Extremities: Revealed no clubbing, cyanosis, or edema. Diagnostic Data: All unremarkable. His chest x-ray was negative. Troponin was negative. Impression And Plan: 1.Unstable angina. 2.Hypertension. The patient has been scheduled to have a heart catheterization done today anyway by Dr. Bella. We w ill plan for a heart catheterization as planned this afternoon by Dr. Bella. We will see what that shows before making any further decision, but I believe the patient has coronary artery disease based on his symptoms. We will continue to follow him along. Case was discussed with Dr. Nam. EDENILSON/[place] Voice ID: [id number] Report ID: [id number]
== END 2020-05-09 10:40 | disposition home or self-care (01) ==
LOC: ER 02:32 → ERHOLD 04:39 → 2ND 11:12
PROVIDERS: ADMIT Internal Medicine; ATTEND Internal Medicine
DX: I25.110 Atherosclerotic heart disease of native coronary artery with unstable angina pectoris (principal); I10 Essential (primary) hypertension; E66.9 Obesity, unspecified; Z68.38 Body mass index [BMI] 38.0-38.9, adult; Z20.822 Contact with and (suspected) exposure to COVID-19; R94.31 Abnormal electrocardiogram [ECG] [EKG]
CPT/HCPCS: 93005; 85025 ×2; 80048 ×2; 36415 ×2; 83735; 85610; 80076; 85347 ×2; 84484 ×3; 83880; 71045; 92928; 93454; 96375; 96374; 99284; C1893; C1725; J0153; J1644 ×3; J2250; J3010; G0378 ×4; J7040; J2405

== ENCOUNTER 2020-05-18 11:47 | Day surgery (SDC) | payer OTHER ==
[~2020-05-18 11:47] MED LIST changes: -EPINEPHRINE/PF 1 MG/ML AMP ONE; +HEPA 1000U/500MLS 2,000 UNIT/1,000 ML BAG IV ONE; -LIDOCAINE 1% MPF 5 ML VIAL ONE; -Ringers Lactate 1,000 ML IV ONE; -propofoL 200 MG/20 ML VIAL IV ONE
[2020-05-18] MEDS ORDERED: NA CHLORIDE 0.9% 500 ML ONE (12:36)
[2020-05-18] MEDS ORDERED: LIDOCAINE 1% 20 ML MDV ONE (13:17)
[2020-05-18] MEDS ORDERED: MIDAZOLAM HCL 2 MG/2 ML INJ ONE (13:18)
[2020-05-18] MEDS ORDERED: HEPARIN 5000 UNIT/ML 1 ML VIAL ONE (13:18)
[2020-05-18] MEDS ORDERED: ASPIRIN 325 MG TAB ONE (13:18)
[2020-05-18] MEDS ORDERED: NITROGLYCERIN/D5W 25 MG/250 ML BTL IV ONE (13:19)
[2020-05-18] MEDS ORDERED: FENTANYL CITR 100 MCG/2 ML ONE (13:19)
[2020-05-18] MEDS ORDERED: NITROGLYCERIN 100 MCG/ML SYR (for cath lab use only) IV ONE (13:19)
[2020-05-18] MEDS ORDERED: TICAGRELOR 90 MG TABLET PO ONE (13:19)
[2020-05-18] MEDS ORDERED: ATROPINE SULF 1 MG/10 ML SYR IV ONE (13:19)
[2020-05-18] MEDS ORDERED: VERAPAMIL HCL 10 MG/4 ML VIAL IV ONE (13:20)
[2020-05-18] MEDS ORDERED: HEPA 1000U/500MLS 1,000 UNIT/500 ML BAG IV ONE (13:57)
[2020-05-18] MEDS ORDERED: D5W 250 ML IV ONE (14:11)
[2020-05-18] MEDS ORDERED: NITROPRUSSIDE 50 MG VIAL IV ONE (14:11)
[2020-05-18] MEDS ORDERED: ASPIRIN 81 MG CHEWABLE TABLET ONE (14:18)
[2020-05-18 16:28] VITALS: TEMP 97.6
[2020-05-18 16:46] VITALS: O2SAT 95
[2020-05-18 17:38] VITALS: BP 120/69
--- NOTE | 2020-05-18 19:48 | OP ---
Date of Procedure: 05/18/2020 Surgeon: CHRISTINA STRATTON Procedures Performed: 1.Selective coronary angiogram. 2.PCI of severe proximal RCA stenosis using 4.0 x 60 mm Synergy drug-eluting stent post dilated usin g 5.0 x 50 mm NC balloon to a size of 5 mm. Indication: Unstable angina, known severe proximal RCA disease. Access: Right radial artery 6-Pakistani closed with TR band. Complications: None. Bleeding: Less than 10 mL. Description Of Procedure: After risks, benefits and alternatives were explained, the patient agreed to the procedure and signed informed consent. The patient was brought into the cardiac catheterizati on laboratory, prepped and draped in usual sterile fashion. Then, fentanyl and Versed were given in incremental doses to achieve adequate moderate sedation. Then, we accessed right radial artery using pediatric micropuncture kit and placed a 6-Pakistani slender sheath and then took a 6-Pakistani JR4 guide into the aortic root over a J-wire, engaged the RCA and then gave systemic heparin to assure ACT leve l above 250. Then, we took a short Run-Through wire into the RCA across the proximal stenosis, pre-d ilated with a 3.5 x 50 mm Compliant balloon to high pressure. Then, we took a 4.[address] x [address] ug-eluting stent, deployed across the stenosis and then took a 5.0 x 50 mm NC balloon and post dilate d stent to proper size of the vessel. No complications. There was slightly slow flow throughout the artery and we gave 100 mcg of IC Nipride and improved the flow to TAZ-3. We then took the catheter out and exchanged for a 5-Pakistani [place] 4.0 diagnostic catheter, engaged the left main, took standard views to evaluate the previously placed stent in the distal LAD and then took the catheter out. She ath was removed. Placed the TR band with good hemostasis. Findings: 1.Left main; large, normal. 2.LAD; large vessel with mid patent stent. Distal to the stent, there were 2-3 consecutive lesions that ranged between 50% to 60% and they looked much better comparing to the first angiogram he had. 3.Left circumflex; large vessel with luminal irregularities. 4.RCA; severe proximal stenosis, status post PCI as above. Within the mid to distal, there are at l east some lesions that measured 40% to 50%. Conclusion: Severe proximal RCA disease, status post successful PCI as above. Plan: Discharge home once criteria are met. Continue aspirin, Brilinta, and statin. SR/MODL Voice ID: [id number] Report ID: [id number]
== END 2020-05-18 17:30 | disposition home or self-care (01) ==
LOC: CCL 11:47
PROVIDERS: ATTEND Internal Medicine
DX: I25.110 Atherosclerotic heart disease of native coronary artery with unstable angina pectoris (principal); I10 Essential (primary) hypertension; Z95.5 Presence of coronary angioplasty implant and graft; Z20.822 Contact with and (suspected) exposure to COVID-19
CPT/HCPCS: 85347; 92928; 93454; U0002; C1893; C1725; J1644 ×3; J2250; J3010; J7060; J7040